=== PATIENT | female | born 1960 | race Caucasian/White ===

== ENCOUNTER 2017-03-15 09:43 | Emergency (ER) | payer MEDICARE ==
--- NOTE | 2017-03-15 10:26 | ERNOTE ---
Head Injury HPI - Narrative Date of Service: 03/15/17 - General Injury to: head Time Seen by Provider: 03/15/17 10:14 Source: patient, family, RN notes reviewed Exam Limitations: no limitations - Immun/Allergies/Home Medications Immunization: IMMUNIZATION HX Immunizations Up to Date Yes History of Influenza Vaccine No Hx Pneumococcal Vaccination No Allergies/Adverse Reactions: Allergies Allergy/AdvReac Type Severity Reaction Status Date / Time diclofenac sodium Allergy Nausea Verified 12/31/14 01:07 [From Arthrotec 50] ibuprofen Allergy Nausea Verified 12/31/14 01:07 misoprostol Allergy Nausea Verified 12/31/14 01:07 [From Arthrotec 50] valdecoxib [From Bextra] Allergy Nausea Verified 12/31/14 01:07 Home Medications: HOME MEDICATIONS Buspirone HCl 10 mg PO BID 12/30/14 [Last Taken Unknown] Levothyroxine Sodium [Synthroid] 250 mcg PO DAILY 12/30/14 [Last Taken Unknown] Trazodone HCl 100 mg PO HS 12/30/14 [Last Taken Unknown] Benazepril HCl 5 mg PO QAM 12/31/14 [Last Taken Unknown] Bupropion HCl 200 mg PO QAM 12/31/14 [Last Taken Unknown] Lamotrigine 300 mg PO QAM 12/31/14 [Last Taken Unknown] Mapap 1,000 mg PO TID 12/31/14 [Last Taken Unknown] Nystatin [Nystop] 60 gm TP TID #1 powder 12/31/14 [Last Taken Unknown] Thiothixene 5 mg PO BID 12/31/14 [Last Taken Unknown] Tramadol HCl 50 mg PO QID 12/31/14 [Last Taken Unknown] - History of Present Illness Narrative: 56 y/o female brought to the ED by wheelchair after falling in the hospital parking lot. She reports dizziness and pain where she struck her head on the pavement. It is unclear if she has had a LOC. She was getting her 's walker out of the car when she fell. A bystander saw her and helped her up. She also reports feeling very tired. She states she has been having problems with her balance for at least the past 2 months, if not longer. She has had several falls at home. She had similar symptoms in the remote past. She was evaluated by neurology and no cause was determined. The symptoms eventually resolved on their own. Occurred: just prior to arrival Location Occurred: other - [employer] parking lot Head Injury Location: parietal Method of Injury: Reports: fell Reason for Fall: Reports: lost balance Loss of Consciousness: Reports: remembers event, remembers coming to hospital, unsure Review of Systems - Review of Systems Constitutional: Present: fatigue. Absent: recent illness, fever EYE: Absent: eye pain, vision changes ENT: Absent: ear discharge, nasal drainage Respiratory: Absent: shortness of breath, cough Cardiology: Absent: chest pain, edema Gastrointestinal/Abdominal: Absent: nausea, vomiting, abdominal pain Genitourinary: Present: no symptoms reported Musculoskeletal: Present: neck pain. Absent: back pain, joint pain Skin: Present: lumps. Absent: rash, lesions, change in color Neurological: Present: headache, dizziness/light-headedness. Absent: weakness, numbness, tingling Endocrine: Present: no symptoms reported Hematologic/Lymphatic: Absent: easy bruising, easy bleeding Psych: Present: no symptoms reported - Patient's Past Medical History Patient History - Medical: Anxiety, Bipolar, Chronic Pain, Diabetes Type 1, Depression, Fibromyalgia, GERD, Headache, Hypothyroidism, Osteoarthritis, UTI'S , Other Patient History - Cardiac/Respiratory: No pertinent hx Patient History - Cancer: No Hx of Cancer Patient History - Surgical Procedures: Appendectomy, Cholecystectomy, , Gastric Bypass, Hysterectomy, T & A, Other Patient History - Other: None - Family History Mother Family History - Medical: Diabetes Type 2, Rheumatoid Arthritis Family History - Cardiac/Respiratory: Asthma Father Family History - Medical: Family History - Cardiac/Respiratory: Coronary Heart Disease, CHF, Myocardial Infarction - Social History Living Situations: spouse Abuse History: No History of abuse Psych History: Hx of Anxiety, Hx of Depression Smoking Status: Never smoker Have you smoked in the past 12 months: No Alcohol Use: none Drug Use: none - Immunizations Immunizations Up to Date: Yes Hx Pneumococcal Vaccination: No History of Influenza Vaccine: No Physical Exam - Physical Exam General Appearance: Present: wd/wn, alert, no apparent distress Head Exam: Present: swelling - Left parietal region, tenderness - Left parietal region. Absent: active bleeding, Weaver's Sign, ecchymosis, lacerations, raccoon eyes Eye Exam: Normal inspection: bilateral, PERRL: bilateral, EOMI: bilateral Ears, Nose, Throat: Present: normal ENT inspection Neck: Present: full range of motion - but somewhat painful, tender lateral. Absent: tender posterior midline Respiratory: Present: no respiratory distress, normal breath sounds, no accessory muscle use, lungs clear Cardiovascular/Chest: Present: regular rate, rhythm, no murmur Extremity Exam: Present: normal inspection, normal range of motion, no edema Neurological Exam: Present: alert, oriented, normal mood/affect, no motor/ sensory deficits Skin Exam: Present: normal color, warm/dry ED Progress - Results and Orders Patient's Lab Results:: I have reviewed the patient's lab results. - Vital Signs Patient's Vital Signs:: I have reviewed the patient's vital signs. Vital Signs: Vital Signs 03/15/17 09:54 Temperature 36.6 C Pulse Rate 65 Respiratory 16 Rate Blood Pressure 120/72 O2 Sat by Pulse 97 Oximetry - CT/Ultrasound CT/Ultrasound Narrative: Technique: Multiple axial images of the head obtained without contrast enhancement. Individualized dose optimization technique was used for the performed procedure including automated exposure control, adjustment of the MA and or KV according to patient size and/or use of iterative reconstruction technique. Comparison: 01/27/2010 Findings: Exam shows symmetric appearing ventricular system and cortical sulci. There is no positive mass effect or midline shift. There is no evidence for intracranial hemorrhage. There is a left parietal scalp hematoma. No skull fractures identified. Visualized paranasal sinuses and mastoid air cells appear adequately aerated. IMPRESSION: LEFT PARIETAL SCALP HEMATOMA. NO SKULL FRACTURES. NO ACUTE INTRACRANIAL PATHOLOGY IDENTIFIED. Electronically signed by Ethan Gallegos M.D.. Technique: Multislice helical acquisition of the cervical spine performed without contrast enhancement. Axial, coronal, and parasagittal reconstruction images performed and reviewed. Individualized dose optimization technique was used for the performed procedure including automated exposure control, adjustment of the MA and or KV according to patient size and/or use of iterative reconstruction technique. Comparison: None. Findings: There is anterior cervical fusion hardware C6-C7 with intervertebral disc prosthetic. There is disc space narrowing and osteophyte formation C4-C5 and C5- C6. There is a mild dextroscoliosis which may be positional. Alignment otherwise appears within normal limits. No fractures identified. No prevertebral soft tissue swelling identified. IMPRESSION: POSTOPERATIVE CHANGES FROM CERVICAL FUSION. CERVICAL SPONDYLOSIS. NO ACUTE OSSEOUS PATHOLOGY IDENTIFIED. Electronically signed by Ethan Gallegos M.D.. - Progress/Reassessment Chief Complaint: Head Injury Progress:: Improved Progress Note-Subjective: 03/15/17 11:06 No acute findings on CT of head and cervical spine, C-collar removed. Patient has no midline tenderness, tenderness present in right lateral neck, worse with movement. [place] ordered for pain, patient takes occasionally at home. Departure Clinical Impression: Hyperkalemia Closed head injury Qualifiers: Encounter type: initial encounter Qualified Code(s): S09.90XA - Unspecified injury of head, initial encounter - Departure Disposition: Home Follow Up Needed Condition: Stable Instructions: Head Injury, Adult, [id number] Additional Instructions: Return to the ER for sudden severe headache, 2 or more episodes of vomiting, or other concerns Follow up with your doctor regarding dizziness/off balance sensation Referrals: Otto Brand MD [Primary Care Provider] -
[2017-03-15] MEDS ORDERED: KETOROLAC TROMETHAMINE 60 MG/2 ML VIAL IM ONE (10:42)
[2017-03-15] MEDS ORDERED: HYDROcodone/ACETAMINOPHEN 1 EACH TABLET PO ONE (11:05)
[2017-03-15] MEDS ORDERED: HYDROcodone/ACETAMINOPHEN 1 EACH TABLET ONE (11:11)
[2017-03-15 11:17] LABS: Hematocrit 39.7 % (37.0-47.0); Hemoglobin 13.6 gm/dL (12.5-16.0); Mean Cell Volume 92.3 fl (78-100); Mean Corpuscular Hemoglobin 31.6 pg (27-31); Mean Corpuscular Hgb Conc 34.3 g/dl (32-36); Mean Platelet Volume 8.6 fl (6.0-9.5); Neutrophil # 4.4 K/mm3 (1.3-6.0); Neutrophil % 55.4 % (42-75.0); Platelet Count 244 K/mm3 (150-450); Red Cell Distribution Width 13.1 % (11.5-14.0); White Blood Count 7.9 K/mm3 (4.0-10.5)
[2017-03-15 11:31] LABS: Albumin * 3.6 gm/dl (3.4-5.0); Anion Gap 12.3 mmol/L (6.8-13.8); BUN/Creatinine Ratio 17.6 (9.0-21.6); Bilirubin, Total 0.3 mg/dL (0.0-1.1); Ca. Corrected For Albumin 9.6 mg/dL (8.4-10.2); Calcium * 9.6 mg/dL (7.9-10.9); Carbon Dioxide 29.8 mmol/L (24-32.6); Potassium 5.1 mmol/L (3.4-4.6); Total Protein 7.7 gm/dL (6.2-8.2)
[2017-03-15 12:15] VITALS: BP 113/65
== END 2017-03-15 12:01 | disposition home or self-care (01) ==
LOC: ER 09:43
DX: S09.90XA Unspecified injury of head, initial encounter (principal); E87.5 Hyperkalemia; Z87.440 Personal history of urinary (tract) infections; W01.198A Fall on same level from slipping, tripping and stumbling with subsequent striking against other object, initial encounter; Y93.89 Activity, other specified; Y92.481 Parking lot as the place of occurrence of the external cause